=== PATIENT | female | born 1960 | race Caucasian/White ===

== ENCOUNTER 2023-02-21 09:12 | Outpatient (CLI) | payer OTHER | END 2023-02-21 09:13 | disposition home or self-care (01) | LOC: CSHWCC 09:12 | PROVIDERS: ATTEND Nurse Practitioner Family | DX: R60.9 Edema, unspecified (principal); I87.331 Chronic venous hypertension (idiopathic) with ulcer and inflammation of right lower extremity; L97.812 Non-pressure chronic ulcer of other part of right lower leg with fat layer exposed | CPT/HCPCS: 11042; 99203; G0463 ==